=== PATIENT | female | born 1990 | race Caucasian/White ===

== ENCOUNTER 2016-06-25 23:23 | Emergency (ER) | payer OTHER ==
--- NOTE | ~2016-06-25 | ER ---
PATIENT'S NAME: CHASTITY PATTERSON [facility] AGE: 25 Y [address] ROOM: [place] [address] LOCATION: ED ADMIT DATE: 06/25/2016 ER/Outpatient Report DISCHARGE DATE: 06/26/2016 FAMILY PHYSICIAN: Luis Cat MD ATTENDING PHYSICIAN: Brad Romo CHIEF COMPLAINT: Right-sided abdominal pain. HISTORY OF PRESENT ILLNESS: The patient states that she has been having abdominal pain off and on for the last month. She states that today the abdominal pain has been more in her right side. She has had several episodes of vomiting in the last hour, which prompted her to come in. She has not taken anything tonight for this same thing. She denies any fevers or chills associated with this. It is the same type of discomfort that she has had before. She states she sees Dr. Cat and they were concerned about her gallbladder and she thinks she is having a gallbladder attack tonight. She states that the pain usually does not make any difference with meals. She states she had a normal bowel movement recently as well. PAST MEDICAL HISTORY: Documented on the record and reviewed by me. SOCIAL HISTORY: Documented on the record and reviewed by me. MEDICATIONS: Documented on the record and reviewed by me. ALLERGIES: DOCUMENTED ON THE RECORD AND REVIEWED BY ME. REVIEW OF SYSTEMS: All systems reviewed and negative except as noted in the HPI. PHYSICAL EXAMINATION: VITAL SIGNS: Blood pressure 133/78, pulse 87, respiratory rate 16, temperature 98.7, SpO2 is 98% on room air. Pain is rated 8/10. GENERAL: An age appropriate female, in an obvious discomfort and no obvious distress. No evidence of pain. NEUROLOGIC: The patient is awake and alert. GCS 15. Gait is normal. No asymmetry on exam. No focal deficits appreciated. HEENT: Normocephalic and atraumatic. Eyes are PERRL. Oropharynx is clear. NECK: Supple. Trachea is midline. No cervical adenopathy. PATIENT'S NAME: CHASTITY PATTERSON [facility] AGE: 25 Y [address] ROOM: [place] [address] LOCATION: ED ADMIT DATE: 06/25/2016 ER/Outpatient Report DISCHARGE DATE: 06/26/2016 FAMILY PHYSICIAN: Luis Cat MD ATTENDING PHYSICIAN: Brad Romo CHEST: Heart is regular rate and rhythm with no murmurs. LUNGS: Clear to auscultation bilateral with no rhonchi, wheezes, or rales. ABDOMEN: Soft, nontender, no masses, no rebound, no guarding. Unchanged on re-examination. BACK: Normal to inspection and palpation. No CVA tenderness. EXTREMITIES : Warm and well perfused. No edema or swelling. No deformities. SKIN: Warm, dry, and intact. LABORATORY DATA AND X-RAYS: CT of the abdomen and pelvis was unremarkable per Radiology read. Labs: White count of 13.0 hemoglobin 15.3, platelets of 411. INR is appropriate. CMS without significant abnormality. Amylase, lipase, and GGT are all within normal limits. Serum lactate is 1.6. Urinalysis with 25 leukocytes, no blood, 0 to 2 epithelial cells, moderate bacteria, 0 to 2 white blood cells. Urine HCG is negative. IMPRESSION: Abdominal pain, not otherwise specified, not other specified. EMERGENCY DEPARTMENT COURSE: The patient was seen and evaluated as above. Her labs are not consistent with hepatobiliary pathology. CT scan excludes any acute intraabdominal process at this time. Based on time course overall, I am reassured that this is not a surgical emergency. On re-evaluation, the patient's abdomen remains benign. Her vital signs remain normal. She was given morphine and Zofran for symptom management with improvement. I reassured the patient that I do not find any source of surgical emergency tonight. She was thankful for this, but overall frustrated that she cannot find a cause for her chronic abdominal pain. I am recommending that she can keep her appointment later this month for an ultrasound of the gallbladder. She should also continue to follow up with her primary care in clinic for further evaluation and treatment. I will discharge her home with prescriptions for [place] and Zofran. We will culture her urine because of the amount of bacteria, but I do not see any evidence of infection. Otherwise at this time, her clinical presentation does not state UTI otherwise. BRAD ROMO MD /modl PATIENT'S NAME: CHASTITY PATTERSON [facility] AGE: 25 Y [address] ROOM: [place] [address] LOCATION: [facility] ADMIT DATE: 06/25/2016 ER/Outpatient Report DISCHARGE DATE: 06/26/2016 FAMILY PHYSICIAN: Luis Cat MD ATTENDING PHYSICIAN: Brad Romo /[id number] d: 06/26/16 1207 t: 07/02/16 0932, OUTPATIENT REPORT
[~2016-06-25 23:23] MED LIST: DESYREL50 MG PO; PROZAC20 MG PO
[2016-06-26 00:25] LABS: BASOPHIL # 0.1 K/uL (0.0-0.2); BASOPHIL % 0.5 %; EOSINOPHIL # 0.2 K/uL (0.0-0.5); EOSINOPHIL % 1.5 %; HEMATOCRIT 44.9 % (33.0-46.0); HEMOGLOBIN 15.3 g/dL (11.0-15.0); IMMATURE GRANULOCYTE # 0.1 K/uL (0.0-0.3); IMMATURE GRANULOCYTE % 0.4 %; LYMPHOCYTE # 3.4 K/uL (0.8-4.0); LYMPHOCYTE % 26.3 %; MCH 28.4 pg (27.0-34.0); MCHC 34.1 gm/dL (32.0-36.5); MCV 83.3 fl (83.0-98.0); MONOCYTE # 0.6 K/uL (0.0-1.0); MONOCYTE % 4.2 %; MPV 9.8 fl (9.4-12.4); NEUTROPHIL # (ANC) 8.7 K/uL (1.8-7.8); NEUTROPHIL % 67.1 %; NRBC % 0 /100WBC (0-0.00); PLATELET COUNT 411 K/uL (150-450); RBC 5.39 M/uL (3.50-5.00); RDW-CV 12.2 % (11.9-14.6)
[2016-06-26 00:36] LABS: INR - (THERAPEUTIC) 0.99 (0.92-1.07); PROTIME 10.4 SECONDS (9.8-11.4); PTT 33 SECONDS (25-32)
[2016-06-26 00:40] LABS: ALBUMIN 4.3 gm/dL (3.5-5.0); ALK PHOS 66 IU/L (33-138); ALT 30 IU/L (12-78); ANION GAP 13.6 (10.0-19.0); AST 18 IU/L (10-40); BLOOD UREA NITROGEN 10 mg/dL (6-24); CALCIUM 9.5 mg/dL (8.5-10.5); CHLORIDE 110 mMol/L (96-110); CO2 25 mMol/L (22-32); CREATININE 0.9 mg/dL (0.5-1.1); ESTIMATED GFR (MDRD EQUATION) > 60; POTASSIUM 3.6 mMol/L (3.7-5.1); SODIUM 145 mMol/L (135-145); TOTAL BILIRUBIN 0.4 mg/dL (0.0-1.5); TOTAL PROTEIN 7.7 g/dL (6.0-8.4)
[2016-06-26 01:18] LABS: BILIRUBIN URINE NEGATIVE (NEGATIVE); BLOOD URINE NEGATIVE /UL (NEGATIVE); COLOR URINE YELLOW (YELLOW); GLUCOSE URINE NEGATIVE (NEGATIVE); KETONE URINE NEGATIVE (NEGATIVE); LEUKOCYTES URINE 25 /UL (NEGATIVE); NITRITE URINE NEGATIVE (NEGATIVE); PH URINE 6.5 (4.0-8.0); PROTEIN URINE NEGATIVE (NEGATIVE); TURBIDITY URINE CLEAR (CLEAR); UROBILINOGEN URINE NORMAL (NORMAL)
[2016-06-26 01:24] LABS: BACTERIA URINE MODERATE (NEGATIVE); EPITHELIAL URINE 0-2 #/HPF (NEGATIVE); RBC URINE NEGATIVE #/HPF (NEGATIVE); WBC URINE 0-2 #/HPF (NEGATIVE)
== END 2016-06-26 02:32 | disposition disaster alternative care site (69) ==
LOC: GMED 23:23
PROVIDERS: Emergency Medicine
DX: R10.9 Unspecified abdominal pain (principal); Z88.1 Allergy status to other antibiotic agents; Z98.890 Other specified postprocedural states
CPT/HCPCS: J2270; J2405; J7030; Q9967